=== PATIENT | male | born 1970 | race Caucasian/White ===

== ENCOUNTER → 2020-04-03 15:38 | Outpatient (CLI) | payer MEDICAID, SELFPAY ==
--- NOTE | 2020-04-03 15:47 | XR_ITS ---
PROCEDURE: XR CHEST 2V CLINICAL HISTORY: COUGH, CHEST CONGESTION, SMOKER COMPARISON: No exams were available for comparison FINDINGS: The cardiomediastinal silhouette and pulmonary vascularity are within normal limits. Small opacity is present in the left lung base overlying the 6th rib anteriorly and may be due to summation artifact. Follow-up may confirm stability. There is minimal biapical pleural thickening. No acute bony abnormalities. IMPRESSION: No acute finding. Possible summation density versus developing nodule left lower lobe. Consider follow-up to confirm stability Dictated b Red Edwards MD 04/03/2020 17:14 Red Edwards MD in [facility] 04/03/2020 17:14
== END ==
PROVIDERS: Visit Provider Nurse Practitioner Family
DX: R05 Cough (principal); R09.89 Other specified symptoms and signs involving the circulatory and respiratory systems; F17.200 Nicotine dependence, unspecified, uncomplicated
CPT/HCPCS: 71046